=== PATIENT | female | born 1990 | race Caucasian/White ===

== ENCOUNTER 2021-03-11 14:35 | Outpatient (REF) | payer MEDICAID, SELFPAY ==
--- NOTE | ~2021-03-11 | XR_ITS ---
EXAMINATION: XR CHEST 2 VIEWS CLINICAL INFORMATION: Palpitations; preoperative examination. COMPARISON: None. TECHNIQUE: Frontal and lateral views of the chest were obtained. FINDINGS: The heart, great vessels, pulmonary vasculature and mediastinum are normal. The lungs show no focal infiltrate, effusion or pneumothorax. There is no acute osseous abnormality. XR/XR chest 2V IMPRESSION: No active cardiopulmonary disease.
[2021-03-11 15:15] LABS: MANUAL DIFF FLAG NO
[2021-03-11 15:23] LABS: Basophils Percent Auto 0.5 % (0-2); Eosinophils Absolute Auto 0.2 X10*3/uL (0.0-0.4); Hematocrit 41.1 % (37-47); Imm Gran Abs Auto 0.01 X10*3/uL (0.00-0.03); Imm Gran Pct Auto 0.2 % (0.0-0.4); Lymphocytes Absolute Auto 1.9 X10*3/uL (1.2-4.9); Lymphocytes Percent Auto 34.1 % (20-40); Mean Corpuscular HGB Conc 31.6 g/dl (31.0-35.0); Mean Corpuscular Hemoglobin 27.1 pg (27.0-33.0); Mean Corpuscular Volume 85.8 fL (80-98); Mean Platelet Volume 10.6 fL (9.4-12.3); Monocytes Absolute Auto 0.4 X10*3/uL (0.1-1.2); Monocytes Percent Auto 6.7 % (2-11); Neutrophils Absolute Auto 3.1 X10*3/uL (2.0-8.3); Neutrophils Percent Auto 55.5 % (45-73); Platelet Count 191 X10*3/uL (160-400); Red Blood Count 4.79 X10*6/uL (4.20-5.50); Red Cell Distribution Width 12.6 % (11.0-16.0); White Blood Count 5.7 X10*3/uL (4.8-10.8)
[2021-03-11 15:26] LABS: INTERNATIONAL NORM RATIO 1.1 (0.9-1.1); Prothrombin Time 13.3 SEC (10.8-13.0)
[2021-03-11 15:28] LABS: Partial Thromboplastin Time 34.1 SEC (24.1-38.0)
[2021-03-11 15:46] LABS: Alanine Aminotransferase 15 U/L (0-31); Albumin Level 4.3 g/dL (3.5-5.0); Alkaline Phosphatase 76 U/L (39-117); Anion Gap 11 (12-20); Aspartate Amino Transferase 19 U/L (5-31); Bilirubin Total 0.4 mg/dL (0.0-1.0); Blood Urea Nitrogen 11 mg/dL (9-16); Calcium 9.6 mg/dL (8.4-10.2); Carbon Dioxide 28 mmol/L (22-29); Chloride 102 mmol/L (96-108); Estimated Glomerular Filt Rate > 60; Glucose Random 84 mg/dL (60-115); Potassium 3.6 mmol/L (3.3-5.1); Sodium 137 mmol/L (135-145); Total Protein 7.8 g/dL (6.5-8.0)
[2021-03-11 16:07] LABS: Free T4 (Free Thyroxine) 1.03 ng/dL (0.71-1.85); Thyroid Stimulating Hormone 0.85 uIU/mL (0.32-4.0)
[2021-03-12 07:42] LABS: HIV AB/AG Nonreactive (Nonreactive); HIV Num 1 0.09 S/CO (0.00-0.99)
[2021-03-12 08:16] LABS: Triiodothyronine T3 Free 3.1 pg/mL (2.3-4.2)
== END 2021-03-11 14:36 | disposition home or self-care (01) ==
LOC: HO.LAB 14:35
PROVIDERS: PCP Internal Medicine; Visit Provider Internal Medicine
DX: Z01.818 Encounter for other preprocedural examination (principal); J45.909 Unspecified asthma, uncomplicated; R00.2 Palpitations
CPT/HCPCS: 36415; 71046; 80053; 84439; 84443; 84481; 85025; 85610; 85730; 87389

== ENCOUNTER → 2021-04-02 08:43 | Outpatient (BNVA) | payer MEDICAID, SELFPAY | PROVIDERS: PCP Internal Medicine; Visit Provider Internal Medicine Cardiovascular Disease | DX: Z01.810 Encounter for preprocedural cardiovascular examination (principal) | CPT/HCPCS: 93005; 99202 ==

== ENCOUNTER → 2021-11-02 11:12 | Outpatient (BNVA) | payer MEDICAID, SELFPAY | PROVIDERS: PCP Internal Medicine; Referring Provider Internal Medicine; Visit Provider Surgery | DX: K42.9 Umbilical hernia without obstruction or gangrene (principal); K43.9 Ventral hernia without obstruction or gangrene | CPT/HCPCS: 99202 ==

== ENCOUNTER 2022-02-16 05:52 | Day surgery (SDC) | payer MEDICAID, SELFPAY ==
[2022-02-08 11:34] VITALS: BMI 28.5
--- NOTE | 2022-02-11 10:25 | HO.ANESPROP2 ---
Documented by User: Karissa Greco NP 02/11/22 10:26 HPI - Anesthesia Eval Consult details Narrative: 31yo F for Hernia Repair Ventral with mesh, Hernia Repair Umbilical with mesh PMFSH Active Problems Active Problems: All Active Problems (Updated 11/02/21 @ 11:55 by Bruce Marin MD) Preoperative cardiovascular examination (Acute) Ventral hernia (Acute) Umbilical hernia (Acute) Asthma (Acute) Past Medical History Medical History Asthma Family History Family History Father No problems noted. Mother No problems noted. Social History Social History Alcohol intake: current Patient Tobacco Use Status: Never used Tobacco Advance Directives: No Advance Directives Information Provided: Yes Advance Directives on File: No Meds Allergies Allergy/AdvReac Type Severity Reaction Status Date / Time diphenhydramine Allergy Unknown Hives Verified 02/16/22 06:37 Penicillins [PENICILLINS] Allergy Unknown Hives Verified 02/16/22 06:37 Home Medications Medication Instructions Recorded Confirmed Last Taken Type albuterol sulfate 90 mcg/actuation 1 inh INHALATION QID 04/02/21 04/02/21 02/16/22 History aerosol inhaler (ProAir HFA) Exam Exam Date and Time: February 11, 2022 1025 Height,Weight and Vital Signs: Height 5 ft Weight 66.224 kg Assessment and Plan Assessment Anesthesia Assessment: Chart Reviewed Documented by User: Kaity Valles MD 02/16/22 07:15 PMFSH Past Medical History Medical History Asthma Functional capacity: independent ambulation Family History Family History Father No problems noted. Mother No problems noted. Family history of problems with anesthesia: No Surgical History History of Problems with Anesthesia: No Social History Social History Alcohol intake: current Patient Tobacco Use Status: Never used Tobacco Advance Directives: No Advance Directives Information Provided: Yes Advance Directives on File: No Meds Allergies Allergy/AdvReac Type Severity Reaction Status Date / Time diphenhydramine Allergy Unknown Hives Verified 02/16/22 06:37 Penicillins [PENICILLINS] Allergy Unknown Hives Verified 02/16/22 06:37 Home Medications Medication Instructions Recorded Confirmed Last Taken Type albuterol sulfate 90 mcg/actuation 1 inh INHALATION QID 04/02/21 04/02/21 02/16/22 History aerosol inhaler (ProAir HFA) Exam Airway Mallampati Class: II TM Dist: >3cm Neck ROM: Full Heart: RRR Lungs: CTA Assessment and Plan Final Anesthetic Review Family History of Problems with Anesthesia: No History of Problems with Anesthesia: No ASA Class: II Final Preanesthetic Review: No Changes in Pt Med Stat, Meds/Allgs Chart Reviewed, Consent Obtained/Reviewed and Anes Risks/Benef Reviewed Patient Risk: Low Procedure Risk: Low Anesthetic Plan Anesthetic Plan: GA Disposition: Standard PACU
[2022-02-16] VITALS (12 sets, daily range): BP systolic 111–134; BP diastolic 65–83; PULSE 60–87; RESP 14–16; TEMP 36.1–36.7; O2SAT 94–99
[2022-02-16 06:24] LABS: UPreg QC Valid YES; Urine Pregnancy NEGATIVE (NEGATIVE)
[2022-02-16] MEDS: Lactated Ringers 1,000 ML 100 ML IVCONT (06:38)
[2022-02-16] MEDS: vancomycin HCL 1,000 MG in 0.9 % Sodium Chloride 250 ML 270 MG IV (06:38)
--- NOTE | 2022-02-16 07:14 | MHC.SHP ---
Pre-Procedural Eval Section A Date of Service: 02/16/22 The patient is an INPATIENT: No Changes since office visit: Yes Patient answered all questions; No Cold of Flu in the past 2 weeks, No New Medical Problems and No Changes in Medication The History & Physical has been completed within 30 days and I have reviewed it.: No Section B Chief Complaint: Umbilical and ventral hernia w/o obstruction Details of Present Illness: Developed two lumps above the umbilicus noted after liposuction, increase in size with lifting Relevant Family History (Specify if Yes): No Relevant Social History: None Present Medications: see Short Stay Collaborative assessment Medical History: Significant History (asthma) History of Previous Operations: No relevant previous surgery Allergies: Allergies Allergy/AdvReac Type Severity Reaction Status Date / Time diphenhydramine Allergy Unknown Hives Verified 02/16/22 06:37 Penicillins [PENICILLINS] Allergy Unknown Hives Verified 02/16/22 06:37 Review of Systems Sugical H&P ROS: Negative: Constitution, Cardiovascular, Respiratory, Neurological, Psychiatric, Hem-Onc, Allergic/Immunologic, Gastrointestinal, Genitourinary, Musculoskeletal, Integumentary, Endocrine and Eyes/Ears/Nose/Throat Exam Surgical H&P Exam: Normal: HEENT, Normal: Heart, Normal: Lungs, Normal: Extremities, Normal: Skin and Normal: Neurological and Significant Findings: Abdomen (ventral and umbilical hernia) Plan Diagnosis/Plan: Unchanged I have reviewed the history and physical and performed a pertinent physical examination on my patient. No changes have occurred unless specified.
--- NOTE | 2022-02-16 09:07 | P.OP_ITS ---
Operative Note Operative Note Date of Service: 02/16/22 Narrative: Preoperative diagnosis:Umbilical and ventral hernia Postoperative diagnosis:Ventral hernia, no umbilical hernia Procedure:Repair of Ventral hernia with mesh, exploration of umbilicus, no hernia identified Surgeon: Bruce Marin MD [facility]: Liz Waterman PA-C Anesthesia:General Indications for procedure: 31-year-old female patient presenting with complaints of a painful lump in the upper abdomen above the umbilicus. She was found on examination to have a ventral hernia and a possible umbilical hernia. She presents today for repair of the ventral hernia and possible umbilical hernia. Operative findings: Patient found to have a large ventral hernia with 3 additional openings adjacent to the larger opening. The defect measured approximately 2 cm in diameter. This was repaired using a 6.4 cm round Ventralex mesh. No umbilical hernia was identified. Specimen: Hernia sac ventral hernia Estimated blood loss: 5 mL Complications: None Procedure details: Patient was brought to the OR and placed in a supine position. After administering general anesthesia the patient's abdomen was prepped with ChloraPrep and draped in a sterile fashion. A surgical time-out was called the consent confirmed. Patient received preoperative antibiotics and Venodyne boots were in place. Local anesthesia consisting of 0.25% Sensorcaine was then infiltrated in the midline over the palpable hernia several cm above the umbilicus. Incision was then made with a scalpel carried out through subcutaneous tissue. The incision measured approximately 3 cm in length. This was carried out through subcutaneous tissue up to the hernia sac. Her speech hernia sac was then dissected circumferentially down to the fascial defect. This was then reduced into the abdominal cavity. Two additional openings were identified adjacent to this and overall included in the primary hernia. A defect measuring 2 cm was identified. A 6 x 4 cm round Ventralex mesh was then obtained. This was placed in the preperitoneal space below the fascia appeared to the fascia using a 1 Tycron suture. The fascia was then closed over the mesh using [id number] 1 Tycron sutures. Hemostasis was then assured using elec trocautery. Attention was then directed to the umbilicus where a curvilinear incision was made in a transverse fashion above the umbilicus. This carried out through subcutaneous tissue down to fascia. The umbilicus was then elevated off the fascia and the fascial surface examined. No hernia could be identified within this location. The umbilical skin was then reattached to the fascia using 3-0 Polysorb sutures. Dermis was closed in both incisions using interrupted 3-0 Polysorb sutures. Skin was closed in both incisions using a running subcuticular 4-0 Polysorb suture. Steri-Strips, 2 x 2 gauze and Tegaderm were then applied. The patient tolerated the procedure well. Sponge, instrument, needle counts reported as correct. The patient was transferred to PACU in stable condition.
[2022-02-16] MEDS: ondansetron HCL 4 MG/2 ML VIAL IVPUSH (09:58)
--- NOTE | 2022-02-16 10:24 | HO.POSTANES ---
Post Anesthesia Evaluation Post Anesthesia Evaluation Vital Signs: Vital Signs Temp Pulse Resp BP Pulse Ox 02/16/22 10:14 97.0 F 67 14 128/80 97 02/16/22 10:00 78 16 125/74 96 02/16/22 09:45 60 16 128/81 96 02/16/22 09:30 78 16 130/79 95 02/16/22 09:25 80 16 132/80 96 02/16/22 09:20 78 16 133/75 95 02/16/22 09:15 97.6 F 80 15 134/83 94 02/16/22 06:21 98.1 F 79 16 111/65 99 Anesthesia: General LMA Mental Status: Awake Pain Control: Satisfactory Nausea/Vomiting: None Hydration: Adequate Anesthesia-Related Issues: No Anes. Related Issues
[2022-02-16] MEDS: Acetaminophen 325 MG TABLET 650 MG PO (10:56)
== END 2022-02-16 12:35 | disposition home or self-care (01) ==
PROVIDERS: Nurse Practitioner; PCP Internal Medicine; Visit Provider Surgery
PROC: (CPT 49560; principal; 2022-02-16 07:30)
PROC: (CPT 49560; 2022-02-16 07:30)
DX: K42.9 Umbilical hernia without obstruction or gangrene (principal); K43.9 Ventral hernia without obstruction or gangrene; J45.909 Unspecified asthma, uncomplicated; Z88.0 Allergy status to penicillin; Z88.8 Allergy status to other drugs, medicaments and biological substances; Z79.899 Other long term (current) drug therapy; Z98.890 Other specified postprocedural states
CPT/HCPCS: 49560; 49568; 81025; 88302; C1781; C9399; J1100; J2250; J2370; J2405; J3010; J3370

== ENCOUNTER → 2022-02-24 09:56 | Outpatient (BNVA) | payer MEDICAID, SELFPAY | PROVIDERS: PCP Internal Medicine; Referring Provider Internal Medicine; Visit Provider Surgery | DX: Z48.815 Encounter for surgical aftercare following surgery on the digestive system (principal); Z87.19 Personal history of other diseases of the digestive system | CPT/HCPCS: 99212 ==

== ENCOUNTER → 2022-03-24 14:59 | Outpatient (BNVA) | payer MEDICAID, SELFPAY | PROVIDERS: PCP Internal Medicine; Referring Provider Internal Medicine; Visit Provider Surgery | DX: Z48.815 Encounter for surgical aftercare following surgery on the digestive system (principal); Z87.19 Personal history of other diseases of the digestive system | CPT/HCPCS: 99212 ==

== ENCOUNTER → 2022-09-30 13:05 | Outpatient (BNVA) | payer MEDICAID, SELFPAY | PROVIDERS: PCP Internal Medicine; Visit Provider Surgery | DX: R10.9 Unspecified abdominal pain (principal); R11.0 Nausea | CPT/HCPCS: 99212 ==

== ENCOUNTER 2022-11-15 09:33 | Outpatient (REF) | payer MEDICAID, SELFPAY ==
--- NOTE | ~2022-11-15 | US_ITS ---
EXAMINATION: US ABDOMEN LIMITED CLINICAL INFORMATION: Ventral hernia without obstruction or gangrene. COMPARISON: None TECHNIQUE: Real-time imaging of the midline, just above umbilicus. FINDINGS: Limited ultrasound through the abdomen wall reveals a hypoechoic area within the deep subcutaneous soft tissues in the area of previous hernia repair. Likely a large granulation tissue or thick scar. There is no skin opening seen. US/US abdomen limited IMPRESSION: Hypoechoic area in the deep soft tissues of abdominal wall in the area of previous surgery. Likely granulation tissue or postsurgical scar. There is no skin break or opening seen.
== END 2022-11-15 09:34 | disposition home or self-care (01) ==
LOC: HO.US 09:33
PROVIDERS: PCP Internal Medicine; Visit Provider Surgery
DX: K43.9 Ventral hernia without obstruction or gangrene (principal)
CPT/HCPCS: 76705

== ENCOUNTER 2024-05-01 08:49 | Emergency (ER) | payer MEDICAID, SELFPAY ==
[2024-05-01 08:51] VITALS: BP 105/75; PULSE 71; RESP 16; TEMP 36.3; O2SAT 98; BMI 27.4
[2024-05-01 09:12] LABS: MANUAL DIFF FLAG NO
[2024-05-01 09:15] LABS: Basophils Percent Auto 0.3 % (0-2); Eosinophils Absolute Auto 0.1 X10*3/uL (0.0-0.4); Eosinophils Percent Auto 3.4 % (0-4); Hematocrit 34.5 % (37.0-47.0); Hemoglobin 10.5 g/dl (12.0-16.0); Imm Gran Abs Auto 0.01 X10*3/uL (0.00-0.03); Imm Gran Pct Auto 0.3 % (0.0-0.4); Lymphocytes Absolute Auto 1.3 X10*3/uL (1.2-4.9); Lymphocytes Percent Auto 32.8 % (20-40); Mean Corpuscular HGB Conc 30.4 g/dl (31.0-35.0); Mean Corpuscular Volume 75.5 fL (80.0-98.0); Monocytes Absolute Auto 0.5 X10*3/uL (0.1-1.2); Monocytes Percent Auto 12.6 % (2-11); Neutrophils Absolute Auto 1.9 x10*3/uL (2.0-8.3); Neutrophils Percent Auto 50.6 % (45-73); Platelet Count 157 X10*3/uL (160-400); Red Blood Count 4.57 X10*6/uL (4.20-5.50); Red Cell Distribution Width 15.2 % (11.0-16.0); White Blood Count 3.8 X10*3/uL (4.8-10.8)
[2024-05-01 09:29] LABS: Alanine Aminotransferase 19 U/L (0-31); Albumin Level 4.1 g/dL (3.5-5.0); Alkaline Phosphatase 87 U/L (39-117); Anion Gap 13 (12-20); Aspartate Amino Transferase 29 U/L (5-31); Bilirubin Total 0.3 mg/dL (0.0-1.0); Blood Urea Nitrogen 9 mg/dL (9-16); Calcium 10.1 mg/dL (8.4-10.2); Carbon Dioxide 24 mmol/L (22-29); Chloride 105 mmol/L (96-108); Creatinine Clr Calc Pharmacy 78.9; Estimated Glomerular Filt Rate > 60; Glucose Random 96 mg/dL (60-115); Sodium 138 mmol/L (135-145); Total Protein 8.1 g/dL (6.5-8.0)
--- NOTE | 2024-05-01 11:18 | ED.GENADULT ---
HPI - General Adult General Chief complaint: General Medical Stated complaint: incision pain and headache since c section Time Seen by Provider: 05/01/24 11:16 Related Data Home Medications ?Medication ?Instructions ?Recorded ?Confirmed albuterol sulfate 90 mcg/actuation 1 inh inhalation QID 04/02/21 09/30/22 aerosol inhaler (ProAir HFA) Allergies Allergy/AdvReac Type Severity Reaction Status Date / Time diphenhydramine Allergy Unknown Hives Verified 05/01/24 08:52 Penicillins [PENICILLINS] Allergy Unknown Hives Verified 05/01/24 08:52 [facility] Past Medical History Medical History Asthma Surgical History History of ventral hernia repair (02/16/22) Family History Family History Father No problems noted. Mother No problems noted. Social History Social History Alcohol intake: current Patient Tobacco Use Status: Never used Tobacco Advance Directives: No Advance Directives Information Provided: No Physical Exam ED Vital Signs: Vital Signs - 24 hr 05/01/24 08:51 Temperature 97.3 F Pulse Rate 71 Respiratory Rate 16 Blood Pressure 105/75 Pulse Oximetry 98 Oxygen Delivery Method Room Air BMI result Body Mass Index 27.4 Medical Decision Making Lab Data 05/01/24 09:06 05/01/24 09:06 Labs: Lab Results 05/01/24 Range/Units 09:06 WBC 3.8 L (4.8-10.8) X10*3/uL RBC 4.57 (4.20-5.50) X10*6/uL Hgb 10.5 L (12.0-16.0) g/dl Hct 34.5 L (37.0-47.0) % MCV 75.5 L (80.0-98.0) fL MCH 23.0 L (27.0-33.0) pg MCHC 30.4 L (31.0-35.0) g/dl RDW 15.2 (11.0-16.0) % Plt Count 157 L (160-400) X10*3/uL MPV 11.0 (9.4-12.3) fL Immature Gran % (Auto) 0.3 (0.0-0.4) % Neut % (Auto) 50.6 (45-73) % Lymph % (Auto) 32.8 (20-40) % [place] % (Auto) 12.6 H (2-11) % Eos % (Auto) 3.4 (0-4) % Baso % (Auto) 0.3 (0-2) % Lymph # (Auto) 1.3 (1.2-4.9) X10*3/uL [place] # (Auto) 0.5 (0.1-1.2) X10*3/uL Eos # (Auto) 0.1 (0.0-0.4) X10*3/uL Baso # (Auto) 0.0 (0.0-0.2) X10*3/uL Abs Immat Gran (auto) 0.01 (0.00-0.03) X10*3/uL Absolute Neuts (auto) 1.9 L (2.0-8.3) x10*3/uL Absolute Nucleated RBC 0.000 (0.0-0.012) X10*3/uL Nucleated RBC % (auto) 0.0 (0.0-0.2) /100WBC Sodium 138 (135-145) mmol/L Potassium 4.0 (3.3-5.1) mmol/L Chloride 105 (96-108) mmol/L Carbon Dioxide 24 (22-29) mmol/L Anion Gap 13 (12-20) BUN 9 (9-16) mg/dL Creatinine 0.86 (0.5-1.4) mg/dL Estim Creat Clear Calc 78.9 Estimated GFR > 60 Random Glucose 96 (60-115) mg/dL Calcium 10.1 (8.4-10.2) mg/dL Total Bilirubin 0.3 (0.0-1.0) mg/dL AST 29 (5-31) U/L ALT 19 (0-31) U/L Alkaline Phosphatase 87 (39-117) U/L Total Protein 8.1 H (6.5-8.0) g/dL Albumin 4.1 (3.5-5.0) g/dL Discharge Plan Discharge Prescriptions: No Action albuterol sulfate [ProAir HFA] 90 mcg/actuation HFA aerosol inhaler 1 inh inhalation QID Print Language: Urdu
== END 2024-05-01 13:50 | disposition left against medical advice (07) ==
PROVIDERS: Emergency Medicine; Emergency Provider Emergency Medicine; PCP Internal Medicine
DX: M54.6 Pain in thoracic spine (principal); Z53.21 Procedure and treatment not carried out due to patient leaving prior to being seen by health care provider
CPT/HCPCS: 36415; 80053; 85025; 99281

== ENCOUNTER 2024-05-21 13:30 | Outpatient (REF) | payer MEDICAID, SELFPAY ==
[2024-05-21 15:27] LABS: Appearance Urine Clear; Color Urine Yellow; Glucose Urine UA Negative (Negative); Leukocyte Esterase Urine Large (3+) (Negative); Nitrite Urine Positive (Negative); UMIC TRIGGER UACC YES; Urine Blood Negative (Negative); Urine Ketones Negative (Negative); Urine Protein Negative (Neg-Trace)
[2024-05-21 15:30] LABS: Bacteria Urine 4+ (None Seen); Hyaline Casts Urine 0-2 /LPF (0-2); RBC Urine 0-2 /HPF (0-2); UACC Culture Trigger YES
== END 2024-05-21 13:31 | disposition home or self-care (01) ==
LOC: HO.LAB 13:30
PROVIDERS: PCP Internal Medicine; Visit Provider Internal Medicine
DX: R30.0 Dysuria (principal)
CPT/HCPCS: 81001; 87086; 87088; 87186

== ENCOUNTER 2024-11-08 14:38 | Outpatient (REF) | payer MEDICAID, SELFPAY ==
[2024-11-08 15:00] LABS: MANUAL DIFF FLAG NO
[2024-11-08 15:38] LABS: Basophils Percent Auto 0.6 % (0-2); Eosinophils Absolute Auto 0.1 X10*3/uL (0.0-0.4); Eosinophils Percent Auto 1.3 % (0-4); Hematocrit 36.9 % (37.0-47.0); Hemoglobin 11.1 g/dl (12.0-16.0); Lymphocytes Absolute Auto 1.8 X10*3/uL (1.2-4.9); Lymphocytes Percent Auto 33.7 % (20-40); Mean Corpuscular HGB Conc 30.1 g/dl (31.0-35.0); Mean Corpuscular Hemoglobin 22.8 pg (27.0-33.0); Mean Corpuscular Volume 75.8 fL (80.0-98.0); Mean Platelet Volume 11.5 fL (9.4-12.3); Monocytes Absolute Auto 0.4 X10*3/uL (0.1-1.2); Monocytes Percent Auto 6.8 % (2-11); Neutrophils Percent Auto 57.6 % (45-73); Platelet Count 216 X10*3/uL (160-400); Red Blood Count 4.87 X10*6/uL (4.20-5.50); Red Cell Distribution Width 15.9 % (11.0-16.0); White Blood Count 5.3 X10*3/uL (4.8-10.8)
[2024-11-08 16:12] LABS: Alanine Aminotransferase 16 U/L (0-31); Albumin Level 4.3 g/dL (3.5-5.0); Anion Gap 10 (12-20); Aspartate Amino Transferase 24 U/L (5-31); Bilirubin Total 0.3 mg/dL (0.0-1.0); Blood Urea Nitrogen 13 mg/dL (9-16); C Reactive Protein 0.35 mg/dL (< or = 0.50); Calcium 9.7 mg/dL (8.4-10.2); Carbon Dioxide 26 mmol/L (22-29); Chloride 107 mmol/L (96-108); Estimated Glomerular Filt Rate > 60; Glucose Random 95 mg/dL (60-115); Potassium 4.3 mmol/L (3.3-5.1); Sodium 139 mmol/L (135-145); Total Protein 8.3 g/dL (6.5-8.0)
[2024-11-08 16:23] LABS: Alkaline Phosphatase 78 U/L (39-117)
[2024-11-08 16:31] LABS: Free T4 (Free Thyroxine) 1.08 ng/dL (0.71-1.85); Vitamin B12 356 pg/mL (200-900)
[2024-11-09 03:58] LABS: CT PCR NOT DETECTED (Not Detect.); NG PCR NOT DETECTED (Not Detect.)
[2024-11-09 08:23] LABS: HIV AB/AG Nonreactive (Nonreactive); HIV Num 1 0.05 S/CO (0.00-0.99); ~HepC Num1 0.11 S/CO (0.00-0.79); ~Hepatitis C Antibody Nonreactive (Nonreactive)
[2024-11-09 08:36] LABS: Syphilis Screen Nonreactive (Nonreactive)
== END 2024-11-08 14:39 | disposition home or self-care (01) ==
LOC: HO.LAB 14:38
PROVIDERS: PCP Internal Medicine; Visit Provider Internal Medicine
DX: D64.9 Anemia, unspecified (principal); J45.909 Unspecified asthma, uncomplicated; Z11.3 Encounter for screening for infections with a predominantly sexual mode of transmission
CPT/HCPCS: 80053; 82607; 84439; 84443; 85025; 86140; 86780; 86803; 87389; 87491; 87591

== ENCOUNTER → 2025-06-27 13:11 | Outpatient (BNVA) | payer MEDICAID, SELFPAY | PROVIDERS: PCP Internal Medicine; Visit Provider Physician Assistant | DX: F41.9 Anxiety disorder, unspecified (principal); G43.909 Migraine, unspecified, not intractable, without status migrainosus; J45.20 Mild intermittent asthma, uncomplicated; E66.9 Obesity, unspecified; Z68.30 Body mass index [BMI] 30.0-30.9, adult; Z13.31 Encounter for screening for depression; Z13.39 Encounter for screening examination for other mental health and behavioral disorders | CPT/HCPCS: 96127; 99212 ==

== ENCOUNTER → 2025-06-27 13:11 | Outpatient (AMB) | payer MEDICAID, SELFPAY ==
--- NOTE | 2025-06-27 13:15 | A.OFFPC_ITS ---
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 Accompanied by: Self / Same As Patient Allergies diphenhydramine Allergy (Unknown, Verified 06/27/25 13:15) Hives Penicillins (PENICILLINS) Allergy (Unknown, Verified 06/27/25 13:15) Hives Medication List - Last Reconciled 06/27/25 by JOSÉ MIGUEL Marc albuterol sulfate 90 mcg/actuation (ProAir HFA) 1 inh inhalation QID levonorgestrel (Mirena) intrauterine sumatriptan succinate 50 mg PO Q2-4H PRN Tobacco use date assessed: 06/27/25 Dental Screening Dental Screen Date: 06/27/25 Did you have a dental visit in the last 12 months?: Yes Did you have a dental problem in the last 6 months where you did not have access to dental care?: No Was dental information given to patient?: No HPI HPI Comments History of Present Illness Details 34-year-old female with history of asthm a presents to the office today for manag ement of chronic conditions and to establish care. Here with her daughter, Lisa. Asthma- mild intermittent. Using albuterol daily in allergy season. Migraines- previously followed with neurology several years ago, would like another referral. Since emergency c section 14 months ago has had recurrence. Occurring often and will last up to one week. Excedrin takes the edge off but not curactive. Has to lay in the touch with sensitivity over the left scalp. Migraines are left sided pulsating. Phono and photophobia. No blurred vision or aura. Anxiety- waking out of sleep. Unclear trigger. Working and going to school. Crying. Obesity- working on weight loss but is a stress eater ROS: General: No fevers, malaise, unintentional weight loss HEENT: No blurred vision, diplopia. No sore throat, nasal congestion, rhinorrhea, sinus pain, ear pain Cardiovascular: No chest pain, palpitations, or leg edema Respiratory: No shortness of breath, wheezing, cough GI: No abdominal pain, nausea, vomiting, diarrhea, constipation, melena, hematochezia : No dysuria, hematuria, increased urinary frequency, decreased urinary output MSK: No myalgia, back pain Neuro: No headaches, weakness, paresthesias Psych: see hpi Skin: No rashes or lesions EXAM: Constitutional - Awake and Alert, No apparent distress Eyes - PERRL Cardiovascular - S1S2, RRR, No edema Respiratory - Normal lung expansion, Normal respiratory effort, No respiratory distress, CTA bilaterally Extremities - no calf tenderness bilaterally, no swelling Skin - Warm/Dry Neurological - Alert & oriented x3 Psychological - Appropriate affect , tearful at times [facility] Medical History (Updated 06/27/25 @ 13:55 by JOSÉ MIGUEL Marc) Migraine Anxiety Asthma Surgical History History of ventral hernia repair (02/16/22) Family History Father No problems noted. Mother No problems noted. Social History Housing: House Alcohol intake: current Patient Tobacco Use Status: Never used Tobacco e-Cigarette/Vaping Use: Never Used service: No Current occupational status: employed Cognitive needs: No Hearing needs: No Vision needs: No Questionnaire PHQ-9 Over the last 2 weeks, how often have you been bothered by any of the following problems? 1. Little interest or pleasure in doing things: not at all 2. Feeling down, depressed, or hopeless: not at all 3. Trouble falling or staying asleep, or sleeping too much: not at all 4. Feeling tired or having little energy: not at all 5. Poor appetite or overeating: not at all 6. Feeling bad about yourself - or that you are a failure or have let yourself or your family down: not at all 7. Trouble concentrating on things, such as reading the newspaper or watching television: not at all 8. Moving or speaking so slowly that other people could have noticed. Or the opposite - being so fidgety or restless that you have been moving around a lot more than usual: not at all 9. Thoughts that you would be better off or of hurting yourself in some way: not at all Total score: 0 Depression Screening Interpretation: Negative Depression Screening Done: Yes 30973 - PHQ-9 Billing: Yes Source: Developed by Drs. Devin Layne, Srinath Cai and colleagues, with an educational dario from [employer]. Thrive Questionnaire Date Thrive assessed: 06/27/25 I am a: Patient What is your living situation today?: I have a steady place to live Within the past 12 months, did the food you bought not last and you didn't have the money to get more?: Never true Within the past 12 months, did you worry whether your food would run out before you got money to buy more?: Never true Do you have trouble paying for medicines?: No Do you have trouble getting transportation to medical appointments?: No Do you have trouble paying your heating and electricity bill?: No Do you have trouble taking care of your child, family member or friend?: No Do you have trouble with day-to-day activities such as bathing, preparing meals, shopping, managing finances, etc.?: No Are you currently unemployed and looking for a job?: No Are you interested in more education?: No Please select the resources that you would like help with: None THRIVE Score: 0 MASSIEL-7 AMB Questionnaire MASSIEL-7 Date MASSIEL - 7 assessed: 06/27/25 Feeling nervous, anxious, or on edge: 1 = Several days Not being able to stop or control worryin = Several days Worrying too much about different things: 1 = Several days Trouble relaxin = Several days Being so restless that it is hard to sit still: 0 = Not at all Becoming easily annoyed or irritable: 1 = Several days Feeling afraid as if something awful might happen: 0 = Not at all Total MASSIEL-7 score (0-4 normal; 5-9 mild; 10-14 moderate; 15-21 severe): 5 Source: Developed by Drs. Devin Layne, Srinath Cai and colleagues, with an educational dario from [employer]. MASSIEL-7 Assessment Billing MASSIEL-7 Assessment Tool: MASSIEL-7 Assessment 46946 Physical exam (Primary Care) Vital Signs: Last Vital Signs Temp 97.3 F 06/27/25 13:20 Pulse 69 06/27/25 13:20 Resp 14 06/27/25 13:20 BP 120/82 06/27/25 13:20 Pulse Ox 98 06/27/25 13:20 Oxygen Delivery Method Room Air 06/27/25 13:20 BMI result Body Mass Index 30.3 Tobacco/Smoking Status: Tobacco use Status Tobacco use date assessed 06/27/25 06/27/25 13:23 Patient Tobacco Use Status Never used Tobacco 06/27/25 13:23 e-Cigarette/Vaping Use Never Used 06/27/25 13:23 PHQ-9: PHQ-9 Score PHQ-9: Total score 0 06/27/25 13:23 Depression Screening Interpretation: Negative Thrive Assessment: Date of Thrive Assessment Date Thrive assessed 06/27/25 06/27/25 13:23 Coding Level of Care Code New Pt Level 4 (68174) Diagnoses Anxiety F41.9 Migraine G43.909 Asthma J45.909 Additional Codes PHQ-9 - 31545 - PHQ-9 Billing: Yes ([id number]) MASISEL-7 Assessment Billing - MASSIEL-7 Assessment Tool: MASSIEL-7 Assessment 72663 ([id number]) Assessment & Plan Assessment & Plan (1) Anxiety: Code(s): F41.9 - Anxiety disorder, unspecified Category: Medical Plan: Trial sertraline. Advised to take 1/2 tab daily then increase to 1 tab daily after 1 week. Counseled on side effects. Counseled on positive coping mechanism (2) Migraine: Code(s): G43.909 - Migraine, unspecified, not intractable, without status migrainosus Category: Medical Plan: Uncontrolled. Given prescription for sumatriptan. Recommend drinking plenty of water and can use Excedrin as needed as well. She is referred to Neurology at her request. (3) Asthma: Code(s): J45.909 - Unspecified asthma, uncomplicated Category: Medical Plan: Continue albuterol only as needed for shortness of breath and wheezing Plan Follow-up in the office in 4-6 weeks Orders: Referrals Neurology Referral G43.909 - Migraine, unspecified, not intractable, without status migrainosus Medications: New sertraline Take 1/2 tab daily x 1 week, then increase to 1 tab daily 50 mg PO DAILY 90 tabs 1RF albuterol sulfate 90 mcg/actuation (Ventolin HFA) 1 inh inhalation QID PRN 8.5 grams 1RF shortness of breath or wheezing sumatriptan succinate do not exceed 4 doses per 24 hrs 50 mg PO Q2-4H PRN 30 tabs 0RF migraine headache albuterol sulfate 90 mcg/actuation (Ventolin HFA) 1 inh inhalation QID PRN 8.5 grams 1RF shortness of breath or wheezing Discontinued albuterol sulfate 90 mcg/actuation (ProAir HFA) Discontinued Reason: Doctor's Order 1 inh inhalation QID 6.7 grams 1RF
[2025-06-27 13:20] VITALS: BP 120/82; PULSE 69; RESP 14; TEMP 36.3; O2SAT 98; BMI 30.3
== END ==
LOC: HO.HMCHD 13:12
PROVIDERS: PCP Internal Medicine; Visit Provider Physician Assistant
DX: F41.9 Anxiety disorder, unspecified (principal); G43.909 Migraine, unspecified, not intractable, without status migrainosus; J45.909 Unspecified asthma, uncomplicated